=== PATIENT | male | born 1950 | race Two or more races ===

== ENCOUNTER 2020-05-13 17:47 | Emergency (ER) | payer MEDICARE, MEDICAID ==
[~2020-05-13] VITALS: Ht 177.8 cm; Wt 108.9 kg
[2020-05-13 17:51] VITALS: BP 124/80
[2020-05-13] MEDS ORDERED: FUROSEMIDE40 MG ORAL (18:05)
[2020-05-13] MEDS ORDERED: DIGOXIN250 MCG ORAL (18:05)
[2020-05-13] MEDS ORDERED: LATANOPROST2.5 ML BOTH EYES (18:05)
[2020-05-13] MEDS ORDERED: AMBIEN10 M1 ORAL (18:05)
[2020-05-13] MEDS ORDERED: IBUPROFEN600 M1 ORAL (18:05)
[2020-05-13] MEDS ORDERED: XARELTO10 MG ORAL (18:05)
[2020-05-13] MEDS ORDERED: BENADRYL25 MG ORAL (18:05)
[2020-05-13] MEDS ORDERED: LANTUS SOL100 UNIT/1 SUBQ (18:05)
[2020-05-13] MEDS ORDERED: CARDIZEM30 M1 PO (18:05)
[2020-05-13] MEDS ORDERED: TRAMADOL HCL50 MG ORAL (18:05)
[2020-05-13] MEDS ORDERED: OXYCODONE HCL5 M2 ORAL (18:05)
[2020-05-13] MEDS ORDERED: NOVOLOG100 UNITS1 SUBQ (18:05)
[2020-05-13] MEDS ORDERED: KLONOPIN1 MG ORAL (18:05)
[2020-05-13] MEDS ORDERED: FISH OIL CAP1000 MG ORAL (18:05)
[2020-05-13] MEDS ORDERED: NEURONTIN600 MG ORAL (18:05)
[2020-05-13] MEDS ORDERED: LIDODERM700 M1 TOPIC (18:05)
--- NOTE | 2020-05-13 19:05 | NUR ---
ED Nurse Note: called patient in, not in waiting room
--- NOTE | 2020-05-13 20:26 | NUR ---
ED Nurse Note: PT ARRIVED WITH [facility] DUE TO HEMATURIA X 2 DAY FROM [facility]. PT IS COVID +. PT. 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 PT. IS AAXO4. AMBULATORY. NO S/S OF RESPIRATORY DISTRESS NOTED AT THIS TIME
[2020-05-13 21:04] LABS: APPEARANCE,URINE CLOUDY; BILIRUBIN, URINE NEGATIVE (NEGATIVE); COLOR,URINE BROWN; GLUCOSE, URINE (UA) NEGATIVE (NEGATIVE); KETONES,URINE NEGATIVE (NEGATIVE); LEUKOCYTE ESTERASE ,URINE 1+ (NEGATIVE); NITRITE,URINE NEGATIVE (NEGATIVE); PH,URINE 6.5 (4.5-8.0); PROTEIN,URINE 3+ (NEGATIVE); UROBILINOGEN,URINE NORMAL MG/DL (0.0-1.0)
[2020-05-13] MEDS ORDERED: HYDROcodone/Acetamin 5/325 tab ORAL ONE (21:30)
--- NOTE | 2020-05-13 22:15 | Diagnostic Imaging Report ---
EXAM: CT Abdomen and Pelvis Without Intravenous Contrast CLINICAL HISTORY: PAIN TECHNIQUE: Axial computed tomography images of the abdomen and pelvis without intravenous contrast. CTDI is 14.3 mGy and DLP is 877.9 mGy-cm. One or more of the following dose reduction techniques were used: automated exposure control, adjustment of the mA and/or kV according to patient size, use of iterative reconstruction technique. Coronal and sagittal reformatted images were created and reviewed. COMPARISON: No relevant prior studies available. FINDINGS: Limitations: Study limited due to lack of IV contrast. Lung bases: Left base passive atelectasis and possible small consolidation, correlate with presentation; consider also aspiration. ABDOMEN: Liver: Cirrhosis, upper abdominal varices. Gallbladder and bile ducts: Unremarkable. No calcified stones. No ductal dilation. Pancreas: Unremarkable. No ductal dilation. Spleen: Unremarkable. No splenomegaly. Adrenals: Unremarkable. No mass. Kidneys and ureters: See below. Stomach and bowel: Prominent colonic stool burden could be a cause for pain. No obstruction. No mucosal thickening. PELVIS: Appendix: No findings to suggest acute appendicitis. Bladder: Mild urinary bladder wall thickening and ureterectasis could be incidental or could be seen with UTI. No stones. Reproductive: Unremarkable as visualized. ABDOMEN and PELVIS: Intraperitoneal space: Unremarkable. No free air. No significant fluid collection. Bones/joints: Advanced age-related multilevel degenerative spine findings. Soft tissues: Gynecomastia. Correlate with exposure history and presentation, has etiologies are myriad. Multiple small soft tissue radiopaque foreign objects seen in the left anterolateral soft tissues, and interposed between the right scapula and body wall. Vasculature: See above. Lymph nodes: Unremarkable. No enlarged lymph nodes. IMPRESSION: 1. Study limited due to lack of IV contrast. 2. Cirrhosis, upper abdominal varices. 3. Mild urinary bladder wall thickening and ureterectasis could be incidental or could be seen with UTI. 4. Prominent colonic stool burden could be a cause for pain. 5. Left base passive atelectasis and possible small consolidation, correlate with presentation; consider also aspiration. 6. Gynecomastia. Correlate with exposure history and presentation, has etiologies are myriad.
[2020-05-13] MEDS ORDERED: CEFPODOXIME PR200 MG PO (22:39)
--- NOTE | 2020-05-13 22:40 | Emergency Room Report ---
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 COVID-19 Screening: Positive COVID-19 COVID-19 Testing Source: [facility] Patient History Past Medical History: see triage record Reviewed Nursing Documentation: PMH: Agreed; PSxH: Agreed Nursing Documentation-PMH Past Medical History: No History, Except For Hx Hypertension: Yes - HEART FAILURE Hx COPD: Yes - SCHIZO Hx Diabetes: Yes - 2 Review of Systems All Other Systems: negative except mentioned in HPI Physical Exam Vital Signs Date Time Temp Pulse Resp B/P (MAP) Pulse Ox O2 Delivery O2 Flow Rate FiO2 05/13/20 17:51 99.0 60 22 124/80 94 Room Air Sp02 EP Interpretation: reviewed, normal General Appearance: well appearing, no apparent distress, alert Head: normocephalic, atraumatic Eyes: bilateral eye PERRL, bilateral eye EOMI ENT: uvula midline, moist mucus membranes Neck: supple, thyroid normal, supple/symm/no masses Respiratory: lungs clear, no respiratory distress, no retraction, no accessory muscle use Cardiovascular #1: normal peripheral pulses, regular rate, rhythm, no edema, no gallop, no murmur Gastrointestinal: non tender, soft, no guarding, no rebound Genitourinary: no CVA tenderness Musculoskeletal: normal inspection Neurologic: alert, oriented x3 Psychiatric: mood/affect normal Skin: no rash, warm/dry Medical Decision Making Diagnostic Impression: Primary Impression: Hematuria Qualified Codes: R31.9 - Hematuria, unspecified Additional Impression: UTI (urinary tract infection) Qualified Codes: N30.01 - Acute cystitis with hematuria ER Course 70-year-old male presents with dysuria, hematuria Patient found to have urinary tract infection will start patient antibiotics Disposition home with return precautions follow-up with PCP Laboratory Tests Test 05/13/20 21:00 Urine Color Brown Urine Appearance Cloudy Urine pH 6.5 (4.5-8.0) Urine Specific [place] 1.010 (1.005-1.035) Urine Protein 3+ (NEGATIVE) H Urine Glucose (UA) Negative (NEGATIVE) Urine Ketones Negative (NEGATIVE) Urine Blood 5+ (NEGATIVE) H Urine Nitrite Negative (NEGATIVE) Urine Bilirubin Negative (NEGATIVE) Urine Urobilinogen Normal MG/DL (0.0-1.0) Urine Leukocyte Esterase 1+ (NEGATIVE) H Urine RBC Tntc /HPF (0 - 0) H Urine WBC 2-4 /HPF (0 - 0) Urine Squamous Epithelial Cells None /LPF (NONE/OCC) Urine Bacteria Few /HPF (NONE) Urine Yeast Moderate /HPF (NONE) H CT/MRI/US Diagnostic Results CT/MRI/US Diagnostic Results : Impression Procedure: CT Abdomen Pelvis WO Contrast EXAM: CT Abdomen and Pelvis Without Intravenous Contrast CLINICAL HISTORY: PAIN TECHNIQUE: Axial computed tomography images of the abdomen and pelvis without intravenous contrast. CTDI is 14.3 mGy and DLP is 877.9 mGy-cm. One or more of the following dose reduction techniques were used: automated exposure control, adjustment of the mA and/or kV according to patient size, use of iterative reconstruction technique. Coronal and sagittal reformatted images were created and reviewed. COMPARISON: No relevant prior studies available. FINDINGS: Limitations: Study limited due to lack of IV contrast. Lung bases: Left base passive atelectasis and possible small consolidation, correlate with presentation; consider also aspiration. ABDOMEN: Liver: Cirrhosis, upper abdominal varices. Gallbladder and bile ducts: Unremarkable. No calcified stones. No ductal dilation. Pancreas: Unremarkable. No ductal dilation. Spleen: Unremarkable. No splenomegaly. Adrenals: Unremarkable. No mass. Kidneys and ureters: See below. Stomach and bowel: Prominent colonic stool burden could be a cause for pain. No obstruction. No mucosal thickening. PELVIS: Appendix: No findings to suggest acute appendicitis. Bladder: Mild urinary bladder wall thickening and ureterectasis could be incidental or could be seen with UTI. No stones. Reproductive: Unremarkable as visualized. ABDOMEN and PELVIS: Intraperitoneal space: Unremarkable. No free air. No significant fluid collection. Bones/joints: Advanced age-related multilevel degenerative spine findings. Soft tissues: Gynecomastia. Correlate with exposure history and presentation, has etiologies are myriad. Multiple small soft tissue radiopaque foreign objects seen in the left anterolateral soft tissues, and interposed between the right scapula and body wall. Vasculature: See above. Lymph nodes: Unremarkable. No enlarged lymph nodes. IMPRESSION: 1. Study limited due to lack of IV contrast. 2. Cirrhosis, upper abdominal varices. 3. Mild urinary bladder wall thickening and ureterectasis could be incidental or could be seen with UTI. 4. Prominent colonic stool burden could be a cause for pain. 5. Left base passive atelectasis and possible small consolidation, correlate with presentation; consider also aspiration. 6. Gynecomastia. Correlate with exposure history and presentation, has etiologies are myriad. Dictated By: Oneal Mayer MD Electronically Signed By:Oneal Mayer MD Signed Date/Time05/13/20 [id number] CC: Usama Veronica MD Last Vital Signs Date Time Temp Pulse Resp B/P (MAP) Pulse Ox O2 Delivery O2 Flow Rate FiO2 05/13/20 17:51 99.0 60 22 124/80 (95) 94 Room Air Disposition: HOME, SELF-CARE Condition: Stable Scripts Cefpodoxime Proxetil (CEFPODOXIME PROXETIL) 200 Mg Tablet 400 MG PO Q12HR for 7 Days, #28 TAB Prov: Usama Veronica MD 05/13/20 Referrals: Alessio Oliveira MD (PCP) Patient Instructions: Urinary Tract Infection Additional Instructions: The patient was provided with discharge instructions, notified to follow-up with a primary care doctor and or specialist in the next 24-48 hours, and to return to the ED if they have worsening of their symptoms. Please note that this report is being documented using [employer] technology. This can lead to erroneous entry secondary to incorrect interpretation by the dictating instrument. Usama Veronica MD May 13, 2020 22:40
[2020-05-13] MEDS ORDERED: Lidocaine 1% MPF 10mg/ml 5ml INJ ONE (22:45)
[2020-05-13 23:16] VITALS: BP 127/93
--- NOTE | 2020-05-13 23:24 | NUR ---
ED Nurse Note: Report received from SHAD RN Patient awake on bed. VSS as documented
--- NOTE | 2020-05-13 23:59 | NUR ---
ER DISCHARGE NOTE: Patient is cleared to be discharged per ERMD, pt is aox4, on room air, with stable vital signs. pt was given dc and prescription instructions, pt was able to verbalize understanding, pt id band removed.Pt was picked up by [facility] ambulance going back to [facility]. pt took all belongings.
[2020-05-14 00:01] VITALS: BP 127/93
== END 2020-05-14 00:02 | disposition home or self-care (01) ==
LOC: EDUNIT# 17:47 → EDBD 17:47 → EMR 20:13
DX: N30.01 Acute cystitis with hematuria (principal); U07.1 COVID-19; E11.9 Type 2 diabetes mellitus without complications; Z79.4 Long term (current) use of insulin
CPT/HCPCS: 74176; 81003; 87086; 96372; 99284; J0696